=== PATIENT | male | born 1980 | race Caucasian/White ===

== ENCOUNTER 2021-02-12 07:31 | Outpatient (REF) | payer BC, SELFPAY ==
[2021-02-12 08:45] LABS: MANUAL DIFF FLAG NO
[2021-02-12 08:51] LABS: Basophils Percent Auto 0.5 % (0-2); Eosinophils Absolute Auto 0.1 X10*3/uL (0.0-0.4); Eosinophils Percent Auto 1.6 % (0-4); Imm Gran Abs Auto 0.03 X10*3/uL (0.00-0.03); Imm Gran Pct Auto 0.4 % (0.0-0.4); Lymphocytes Absolute Auto 2.5 X10*3/uL (1.2-4.9); Lymphocytes Percent Auto 32.7 % (20-40); Mean Corpuscular HGB Conc 34.1 g/dl (31.0-36.0); Mean Corpuscular Hemoglobin 32.4 pg (27.0-33.0); Mean Corpuscular Volume 94.9 fL (80-98); Mean Platelet Volume 10.2 fL (9.4-12.4); Monocytes Absolute Auto 0.5 X10*3/uL (0.1-1.2); Monocytes Percent Auto 6.5 % (2-11); Neutrophils Absolute Auto 4.5 X10*3/uL (2.0-8.3); Neutrophils Percent Auto 58.3 % (45-73); Platelet Count 233 X10*3/uL (160-400); Red Blood Count 4.32 X10*6/uL (4.60-5.80); Red Cell Distribution Width 12.7 % (11.0-16.0); White Blood Count 7.7 X10*3/uL (4.8-10.8)
[2021-02-12 09:13] LABS: Alanine Aminotransferase 18 U/L (0-40); Albumin Level 4.6 g/dL (3.5-5.0); Alkaline Phosphatase 38 U/L (39-117); Anion Gap 15 (12-20); Aspartate Amino Transferase 16 U/L (5-37); Bilirubin Total 0.5 mg/dL (0.0-1.0); Blood Urea Nitrogen 14 mg/dL (9-16); Calcium 9.2 mg/dL (8.4-10.2); Carbon Dioxide 23 mmol/L (22-29); Chloride 106 mmol/L (96-108); Cholesterol 186 mg/dL; Estimated Glomerular Filt Rate > 60; Glucose Fasting 82 mg/dL (60-99); HDL Cholesterol 39 mg/dL; LDL Cholesterol Calculated 108 mg/dl; Potassium 4.3 mmol/L (3.3-5.1); Sodium 140 mmol/L (135-145); Total Protein 7.1 g/dL (6.5-8.0); Triglycerides 196 mg/dL
== END 2021-02-12 07:32 | disposition home or self-care (01) ==
LOC: HO.LAB 07:31
PROVIDERS: PCP Internal Medicine; Visit Provider Nurse Practitioner Family
DX: A69.20 Lyme disease, unspecified (principal)
CPT/HCPCS: 36415; 80053; 80061; 85025

== ENCOUNTER → 2021-03-18 10:05 | Outpatient (BNVA) | payer BC, SELFPAY | PROVIDERS: PCP Internal Medicine; Visit Provider Internal Medicine ==

== ENCOUNTER 2021-03-19 16:08 | Emergency (ER) | payer BC, SELFPAY ==
[2021-03-19 17:10] VITALS: BP 139/85; PULSE 83; RESP 16; TEMP 36.2; O2SAT 100; BMI 29.9
--- NOTE | 2021-03-19 17:31 | ED.GENADULT ---
HPI - General Adult General Chief complaint: General Medical Stated complaint: ABN LABS Time Seen by Provider: 03/19/21 17:19 History of Present Illness HPI narrative: Patient complains of some insect bites, as well as a rash to upper thighs, and some other rash on the body, he is concerned as he found some insects in the car, no shortness of breath no swelling of tongue or lips or pharynx Related Data Previous Rx's Medication Instructions Recorded diphenhydramine HCl 25 mg tablet 25 mg PO BEDTIME PRN #30 tab 01/07/21 hydrocortisone 1 % topical cream 1 appl TOPICAL QID PRN #28.4 g 01/07/21 cholecalciferol (vitamin D3) 50 50 mcg PO DAILY 60 Days #60 cap 01/29/21 mcg (2,000 unit) capsule zinc 50 mg tablet 50 mg PO DAILY 30 Days #30 tab 01/29/21 permethrin 5 % topical cream 1 appl TOPICAL Q14D #60 g 03/07/21 cetirizine 10 mg PO DAILY PRN #14 cap 03/19/21 clotrimazole 1 appl TOPICAL BID PRN #45 g 03/19/21 dextroamphetamine-amphetamine 10 10 mg PO BID PRN 30 Days #60 tab 03/19/21 mg tablet hydrocortisone 1 appl TOPICAL BID PRN #30 g 03/19/21 Allergies Allergy/AdvReac Type Severity Reaction Status Date / Time bupropion [From Wellbutrin] Allergy Unknown inadequate Verified 03/14/21 11:33 response Review of Systems Review of Systems: Positive for skin rash and insect bites Negatives are no fever no chills no dizziness no weakness no swelling in the throat no difficulty breathing or swallowing no chest pain no shortness of breath no abdominal pain no vomiting no numbness weakness or tingling Yes all other systems are reviewed and are negative PMFSH Past Medical History Source: nursing notes reviewed Medical History ADD (attention deficit disorder) Anxiety and depression Erythema migrans (Lyme disease) Insect bite of thigh, right, infected Skin infection Surgical History History of vasectomy Family History Family History Father Diabetes Mother Cancer Smoker Family/Other FH: mental illness Social History Social History Alcohol intake: never Smoking Status: Former smoker Tobacco Type: Cigarette Advance Directives: No Advance Directives Information Provided: Yes Physical Exam Vital Signs: Vital Signs: Last Vital Signs Temp 97.1 F 03/19/21 17:10 Pulse 83 03/19/21 17:10 Resp 16 03/19/21 17:10 BP 139/85 03/19/21 17:10 Pulse Ox 100 03/19/21 17:10 Body Mass Index 29.9 General appearance is no acute distress The eyes are normal without redness or discharge The pharynx is clear without redness or swelling, there is no drooling, voice is normal The neck is supple The chest is clear to auscultation bilateral with equal symmetrical breath sounds The heart murmur Extremities full range of motion x4 Skin exam there are multiple small possible bug bites without surrounding cellulitis, no vesicular rash no petechiae or purpura Bilateral upper inner thighs head a raised border round red rash on both medial thighs consistent with a fungal infection Neuro no focal motor sensory deficit Course Course Course Narrative: Patient was recently prescribed permethrin for possible scabies I made sure he had an antihistamine for the itch from possible bug bites and the rash on his inner thighs which was raised and had the appearance of a fungal rash is treated with clotrimazole cream Discharge Plan Discharge Clinical Impression: Rash, Insect bite Patient Disposition: Home, Self-Care Additional Instructions: The rash on both her thighs could be a fungal infection so we are treating with clotrimazole cream as well as hydrocortisone cream The insect bites could be from any kind of insect and as they were itchy we are treating with Claritin, there is no sign of any skin infection or abscess Follow with primary doctor Return any concerns Prescriptions: New clotrimazole 1 % cream 1 appl topical BID PRN (Reason: Rash on thighs) Qty: 45 RF: 0 hydrocortisone 2.5 % cream 1 appl topical BID PRN (Reason: rash) Qty: 30 RF: 0 cetirizine 10 mg capsule 10 mg PO DAILY PRN (Reason: allergy symptoms) Qty: 14 RF: 0 No Action permethrin 5 % cream 1 appl topical Q14D Qty: 60 RF: 0 dextroamphetamine-amphetamine [Adderall] 10 mg tablet 10 mg PO BID PRN (Reason: attention) 30 Days Qty: 60 RF: 0 hydrocortisone 1 % cream 1 appl topical QID PRN (Reason: skin irritation) Qty: 28.4 RF: 0 diphenhydramine HCl [Allergy (diphenhydramine)] 25 mg tablet 25 mg PO BEDTIME PRN (Reason: sleep) Qty: 30 RF: 0 cholecalciferol (vitamin D3) 50 mcg (2,000 unit) capsule 50 mcg PO DAILY 60 Days Qty: 60 RF: 0 zinc 50 mg tablet 50 mg PO DAILY 30 Days Qty: 30 RF: 0 Interventions: ED Discharge Assessment Last Done: 03/19/21 17:39 Discharge Date/Time: 03/19/21 17:41
== END 2021-03-19 17:41 | disposition home or self-care (01) ==
PROVIDERS: Emergency Provider Internal Medicine; PCP Internal Medicine
DX: R21 Rash and other nonspecific skin eruption (principal); R79.89 Other specified abnormal findings of blood chemistry; Z79.899 Other long term (current) drug therapy; Z87.891 Personal history of nicotine dependence
CPT/HCPCS: 99283

== ENCOUNTER 2021-11-20 09:12 | Outpatient (REF) | payer BC, SELFPAY ==
[2021-11-20 14:31] LABS: Binax Internal Control QC Valid; Binax Now Covid-19 Ag Positive (Negative)
== END 2021-11-20 09:13 | disposition home or self-care (01) ==
LOC: HO.HMGCLDS 09:12
PROVIDERS: Visit Provider Internal Medicine
DX: Z20.822 Contact with and (suspected) exposure to COVID-19 (principal)
CPT/HCPCS: 36415; C9803

== ENCOUNTER 2022-07-17 12:30 | Emergency (ER) | payer BC, SELFPAY ==
--- NOTE | ~2022-07-17 | CT_ITS ---
EXAMINATION: CT HEAD WITHOUT CONTRAST CLINICAL INFORMATION: New onset of hallucinations. COMPARISON: None TECHNIQUE: Contiguous axial imaging was performed from the skull base to vertex without intravenous administration of contrast. Coronal and sagittal reformatted images are performed at the CT scanner. [This CT examination was performed using dose optimization techniques as appropriate, variously including the following: *Automated exposure control *Adjustment of mA and/or kV according to patient size (this includes techniques or standardized protocols for targeted exams where dose is matched to indication/reason for exam; i.e. extremities or head) *Use of iterative reconstruction technique] DLP: 698 mGy-cm. FINDINGS: There is no evidence of acute intracranial hemorrhage or territorial infarction. No abnormal mass-effect or midline shift is seen. Beckman to white matter differentiation is well preserved. No extra-axial fluid collections are identified. The ventricles are normal in size. There is no abnormal attenuation within the brain parenchyma. There is no osseous abnormality. The mastoid air cells and visualized portions of the paranasal sinuses are well-aerated. CT/CT head/brain wo IV con IMPRESSION: No acute intracranial pathology.
[2022-07-17 12:45] VITALS: BP 126/69; PULSE 76; RESP 18; TEMP 36.2; O2SAT 98; BMI 29.0
--- NOTE | 2022-07-17 13:06 | ECG_ITS ---
Test Reason : med clearance Blood Pressure : / mmHG Vent. Rate : 057 BPM Atrial Rate : 057 BPM P-R Int : 154 ms QRS Dur : 086 ms QT Int : 418 ms P-R-T Axes : 077 074 042 degrees QTc Int : 406 ms Sinus bradycardia with sinus arrhythmia Otherwise normal ECG No previous ECGs available Referred By: Naz Lauren Electronically Signed By:OREN BEAR
--- NOTE | 2022-07-17 13:10 | ED_ITS ---
HPI - Psych General Chief Complaint: Psychiatric Symptoms Stated Complaint: Psych symptoms Time Seen by Provider: 07/17/22 13:06 Source: patient Mode of arrival: ambulatory Limitations: no limitations History of Present Illness MD complaint: anxiety, hallucinations and other (paranoid) Onset (ago): week(s) (2) Duration: getting worse History of same: No Relieving factors: none Exacerbating factors: other ( life stress ) Context: significant life stressor Associated psychiatric symptoms: racing thoughts, auditory hallucinations and visual hallucinations Associated symptoms: denies other symptoms Treatments prior to arrival: none Related Data Previous Rx's Medication Instructions Recorded clobetasol 0.05 % topical cream 1 appl topical BID 2 weeks #45 12/01/21 grams albuterol sulfate 90 mcg/actuation 1 inh inhalation QID 30 days #6.7 06/01/22 aerosol inhaler grams dextroamphetamine-amphetamine 10 10 mg PO BID PRN attention 30 days 06/22/22 mg tablet (Adderall) #60 tabs Allergies Allergy/AdvReac Type Severity Reaction Status Date / Time bupropion [From Wellbutrin] Allergy Intermediate inadequate Verified 07/17/22 12:45 response Review of Systems Review of Systems: Constitutional : No Fever, No Chills ENT/Mouth : No Ear Pain, No Nasal Congestion, No sore throat Eyes: No Eye Pain, No Swelling, No Redness Cardiovascular : No Chest Pain, No SOB Respiratory : No Cough, No Sputum, No Dyspnea Gastrointestinal : No Nausea, No Vomiting, No Diarrhea, No Hematochezia, No Melena Genitourinary : No Dysuria, No Urinary Frequency, No Hematuria Musculoskeletal : No Myalgias Skin : No Skin Lesions, No rash Neuro : No Weakness, No Numbness, No Paresthesias, No Dizziness, No Headache Psych : positive Anxiety, positive Depression, no SI/HI, pos AH, VH Heme/Lymph: No Lymphadenopathy Endocrine : No Polyuria, No Polydipsia All other systems reviewed and are negative PMFSH Past Medical History Attestation statement: The following information was validated with the patient. Medical History ADD (attention deficit disorder) Anxiety and depression Erythema migrans (Lyme disease) Hypovitaminosis D Insect bite of thigh, right, infected Shortness of breath Skin infection Unprotected sex Surgical History History of vasectomy Family History Family History Father Diabetes Mother Cancer Smoker Family/Other FH: mental illness Social History Social History Housing: Apartment Alcohol intake: never Patient Tobacco Use Status: Current someday Tobacco user Tobacco use type: Cigarette e-Cigarette/Vaping Use: Currently Using Second Hand Smoke Exposure: No Advance Directives: No Advance Directives Information Provided: Yes service: No Current occupational status: employed Current occupational exposures/hazards: No Physical Exam Vital Signs: Vital Signs: Last Vital Signs Temp 97.2 F 07/17/22 12:45 Pulse 76 07/17/22 12:45 Resp 18 07/17/22 12:45 BP 126/69 07/17/22 12:45 Pulse Ox 98 07/17/22 12:45 O2 Del Method 07/17/22 12:45 BMI result Body Mass Index 29.0 Appearance: Alert. Oriented X3. No acute distress. anxious laughing to himself at times Eyes: Pupils equal, round and reactive to light. ENT: Pharynx normal. Neck: Normal inspection. Neck supple. CVS: Normal heart rate and rhythm. Pulses normal. Respiratory: No respiratory distress. Breath sounds normal. Abdomen: Soft and nontender. Skin: Skin warm and dry. Normal skin color. Normal skin turgor. Extremities: No lower extremity edema. No calf ttp Neuro: Oriented X 3. No motor deficit. No sensory deficit. CN2-12 intact Course Course Course Narrative: Physician observation started at 305pm. Patient placed in physician observation because the patient needed more time for CARE team to assess the need for psych admission. At the time observation was started the patient's vitals were stable, patient is alert and oriented but slightly anxious, Neuro: nonfocal, CV RRR, Lungs clear MDM - Psych MDM Narrative Medical decision making narrative: 42 yo male with hx of anxiety and depression presents with c/o AH/VH no sleep since life stressors at this time given new onset hallucinations will need labs, CT head for mass once medically cleared will refer to CARE team/[facility]. Dispo per results and findings. Lab Data Result diagrams: 07/17/22 14:19 07/17/22 14:19 Labs: Lab Results 09/01/0607/17/22 07/17/22 Range/Units 14:19 14:19 14:19 WBC 6.9 (4.8-10.8) X10*3/uL RBC 4.10 L (4.60-5.80) X10*6/uL Hgb 13.3 L (14.0-18.0) g/dl Hct 37.7 L (42.0-52.0) % MCV 92.0 (80.0-98.0) fL MCH 32.4 (27.0-33.0) pg MCHC 35.3 (31.0-36.0) g/dl RDW 12.8 (11.0-16.0) % Plt Count 247 (160-400) X10*3/uL MPV 9.7 (9.4-12.4) fL Immature Gran % (Auto) 0.3 (0.0-0.4) % Neut % (Auto) 58.4 (45-73) % Lymph % (Auto) 35.7 (20-40) % [place] % (Auto) 4.6 (2-11) % Eos % (Auto) 0.4 (0-4) % Baso % (Auto) 0.6 (0-2) % Lymph # (Auto) 2.5 (1.2-4.9) X10*3/uL [place] # (Auto) 0.3 (0.1-1.2) X10*3/uL Eos # (Auto) 0.0 (0.0-0.4) X10*3/uL Baso # (Auto) 0.0 (0.0-0.2) X10*3/uL Abs Immat Gran (auto) 0.02 (0.00-0.03) X10*3/uL Absolute Neuts (auto) 4.0 (2.0-8.3) x10*3/uL Absolute Nucleated RBC 0.000 (0.0-0.012) X10*3/uL Nucleated RBC % (auto) 0.0 (0.0-0.2) /100WBC Sodium 144 (135-145) mmol/L Potassium 4.0 (3.3-5.1) mmol/L Chloride 104 (96-108) mmol/L Carbon Dioxide 26 (22-29) mmol/L Anion Gap 18 (12-20) BUN 12 (9-16) mg/dL Creatinine 0.95 (0.5-1.4) mg/dL Estim Creat Clear Calc 101.6 Estimated GFR > 60 Random Glucose 122 H (60-115) mg/dL Calcium 9.7 (8.4-10.2) mg/dL Magnesium 2.2 (1.6-2.6) mg/dL Total Bilirubin 0.5 (0.0-1.0) mg/dL Direct Bilirubin 0.2 (0.0-0.5) mg/dL AST 16 (5-37) U/L ALT 14 (0-40) U/L Alkaline Phosphatase 37 L (39-117) U/L Total Protein 7.1 (6.5-8.0) g/dL Albumin 4.5 (3.5-5.0) g/dL TSH (0.32-4.0) uIU/mL Ethyl Alcohol mg/dL COVID-19 ([facility]) Negative (Negative) COVID-19 Clin Com See Note 07/17/22 07/17/22 Range/Units 14:19 14:19 WBC (4.8-10.8) X10*3/uL RBC (4.60-5.80) X10*6/uL Hgb (14.0-18.0) g/dl Hct (42.0-52.0) % MCV (80.0-98.0) fL MCH (27.0-33.0) pg MCHC (31.0-36.0) g/dl RDW (11.0-16.0) % Plt Count (160-400) X10*3/uL MPV (9.4-12.4) fL Immature Gran % (Auto) (0.0-0.4) % Neut % (Auto) (45-73) % Lymph % (Auto) (20-40) % [place] % (Auto) (2-11) % Eos % (Auto) (0-4) % Baso % (Auto) (0-2) % Lymph # (Auto) (1.2-4.9) X10*3/uL [place] # (Auto) (0.1-1.2) X10*3/uL Eos # (Auto) (0.0-0.4) X10*3/uL Baso # (Auto) (0.0-0.2) X10*3/uL Abs Immat Gran (auto) (0.00-0.03) X10*3/uL Absolute Neuts (auto) (2.0-8.3) x10*3/uL Absolute Nucleated RBC (0.0-0.012) X10*3/uL Nucleated RBC % (auto) (0.0-0.2) /100WBC Sodium (135-145) mmol/L Potassium (3.3-5.1) mmol/L Chloride (96-108) mmol/L Carbon Dioxide (22-29) mmol/L Anion Gap (12-20) BUN (9-16) mg/dL Creatinine (0.5-1.4) mg/dL Estim Creat Clear Calc Estimated GFR Random Glucose (60-115) mg/dL Calcium (8.4-10.2) mg/dL Magnesium (1.6-2.6) mg/dL Total Bilirubin (0.0-1.0) mg/dL Direct Bilirubin (0.0-0.5) mg/dL AST (5-37) U/L ALT (0-40) U/L Alkaline Phosphatase (39-117) U/L Total Protein (6.5-8.0) g/dL Albumin (3.5-5.0) g/dL TSH 1.29 (0.32-4.0) uIU/mL Ethyl Alcohol < 10 mg/dL COVID-19 ([facility]) (Negative) COVID-19 Clin Com Discharge Plan Discharge Clinical Impression: Hallucinations Patient Disposition: Still a Patient Prescriptions: No Action clobetasol 0.05 % cream 1 appl topical BID 14 Days Qty: 45 2RF albuterol sulfate 90 mcg/actuation HFA aerosol inhaler 1 inh inhalation QID 30 Days Qty: 6.7 1RF dextroamphetamine-amphetamine [Adderall] 10 mg tablet 10 mg PO BID PRN (Reason: attention) 30 Days Qty: 60 0RF Rx Instructions: administer doses at least 4-6 hours apart
--- NOTE | 2022-07-17 13:20 | MHC.CARE ---
CARE Team received a call from Pts therapist Ann Hurtado [phone] MANAGER [employer]OGY. She reported he has been experiencing shima and paranoia. She reports Pt is questioning if he is or live. Pt is stating is he seeing a auras of people and they are evil. She concerned regarding his impairment that he may hurt himself or someone else. She is advocatinfg for a crisis assessment / IPLOC admission. CARE Team informed bellows charger assembler and attending physician Dr. Lauren. CARE Team placed Pt on a Section 12 and will be evaluated upon medical clearance.
[2022-07-17 14:25] LABS: MANUAL DIFF FLAG NO
[2022-07-17 14:27] LABS: Basophils Percent Auto 0.6 % (0-2); Eosinophils Percent Auto 0.4 % (0-4); Hematocrit 37.7 % (42.0-52.0); Hemoglobin 13.3 g/dl (14.0-18.0); Imm Gran Abs Auto 0.02 X10*3/uL (0.00-0.03); Imm Gran Pct Auto 0.3 % (0.0-0.4); Lymphocytes Absolute Auto 2.5 X10*3/uL (1.2-4.9); Lymphocytes Percent Auto 35.7 % (20-40); Mean Corpuscular HGB Conc 35.3 g/dl (31.0-36.0); Mean Corpuscular Hemoglobin 32.4 pg (27.0-33.0); Mean Platelet Volume 9.7 fL (9.4-12.4); Monocytes Absolute Auto 0.3 X10*3/uL (0.1-1.2); Monocytes Percent Auto 4.6 % (2-11); Neutrophils Percent Auto 58.4 % (45-73); Platelet Count 247 X10*3/uL (160-400); Red Cell Distribution Width 12.8 % (11.0-16.0); White Blood Count 6.9 X10*3/uL (4.8-10.8)
[2022-07-17 14:39] LABS: Ethanol < 10 mg/dL
[2022-07-17 14:43] LABS: Alanine Aminotransferase 14 U/L (0-40); Albumin Level 4.5 g/dL (3.5-5.0); Alkaline Phosphatase 37 U/L (39-117); Anion Gap 18 (12-20); Aspartate Amino Transferase 16 U/L (5-37); Bilirubin Direct 0.2 mg/dL (0.0-0.5); Bilirubin Total 0.5 mg/dL (0.0-1.0); Blood Urea Nitrogen 12 mg/dL (9-16); Calcium 9.7 mg/dL (8.4-10.2); Carbon Dioxide 26 mmol/L (22-29); Chloride 104 mmol/L (96-108); Creatinine Clr Calc Pharmacy 101.6; Estimated Glomerular Filt Rate > 60; Glucose Random 122 mg/dL (60-115); Magnesium 2.2 mg/dL (1.6-2.6); Sodium 144 mmol/L (135-145); Total Protein 7.1 g/dL (6.5-8.0)
[2022-07-17 14:45] LABS: COVID-19 Test Negative (Negative)
--- NOTE | 2022-07-17 14:53 | PC.NURSE ---
supplemental triage note: client states only current med adderall, received covid vaccine, states he previously was seen at [facility] with this presentation in march. deines all drugs except THC. patient feels safe. was asked about sublocade and patient does not recall about this medicine , no NRT desired.
[2022-07-17 15:03] LABS: TSH reflex Free T4 1.29 uIU/mL (0.32-4.0)
[2022-07-17 16:34] LABS: Amphetamine Screen Urine POSITIVE (Not Detect); Barbiturates, Urine Not Detected (Not Detect); Benzodiazepines Screen Urine Not Detected (Not Detect); Cannabinoid Screen Urine POSITIVE (Not Detect); Cocaine Screen Urine Not Detected (Not Detect); Fentanyl, urine Not Detected (Not Detect); Opiate Screen Urine Not Detected (Not Detect); Phencyclidine Screen Urine Not Detected (Not Detect)
--- NOTE | 2022-07-17 17:35 | MHC.CARE ---
Pt was evaluated by the CARE Team and made an inpatient bedsearch at this time.
[2022-07-17 20:09] VITALS: BP 97/57; PULSE 60; RESP 16; TEMP 36.4; O2SAT 98
[2022-07-18 01:48] VITALS: BP 117/82; PULSE 65; RESP 16; TEMP 36.8; O2SAT 98
--- NOTE | 2022-07-18 07:01 | PC.NURSE ---
Patient slept though the night, no distress observed/reported, behavior non concerning, med rec completed/pending provider's approval, disposition per care team is section 12 inpatient bed search, VSS, will continue to monitor.
[2022-07-18 11:43] VITALS: BP 104/70; PULSE 58; RESP 16; TEMP 36.9; O2SAT 99
--- NOTE | 2022-07-18 13:43 | PC.NURSE ---
Patient refused starting Zyprexa from yoanna RN. Patient states he does not want to start a medication before talking to his Primary care and psychiatrist.
--- NOTE | 2022-07-18 15:13 | MHC.CARE ---
CARE Team meets with pt at his request for an audience.? Pt is sitting in bed at the time, with a broad smile on his face.? He asks why he remains in the ED and what the plan is.? He appears intense, though the question is posed in a polite fashion, his affect does not appear congruent with his mood.? Pt is insistent that he is well enough to leave and is not accepting of the decision to be made a bed search nor does he think he is in need of inpatient level of CARE. Pt argues his point politely and in a non-threatening manner though there is a degree of intensity to his behavior and his affect even though the broad smile remains throughout the conversation.? At one point, pt stopped speaking and stared at CARE Team as though he was observing something on or around this check writer?s person. Pt then dismissed CARE Team, stating that his meal trays could be left outside his ?cell door, like a dog?.? Pt also stated that should there be a need for further interactions, to knock before entering, and enter only when given permission to do so.? NOTE:? CARE Team did knock before entering and entered only when acknowledged. Pt?s nurse, earlier today refused Zyprexa.? Pt?s new nurse notified CARE Team that pt approached the nurse?s station, declared his pants did not fit appropriately and then dropped his pants.
[2022-07-18 19:52] VITALS: BP 124/78; PULSE 82; RESP 16; TEMP 36.3; O2SAT 99
--- NOTE | 2022-07-19 06:35 | PC.NURSE ---
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
[2022-07-19] MEDS: Hydrocortisone 1 % Cream 28.35 GM TUBE 1 APPL TOPICAL (12:07)
[2022-07-19 15:44] VITALS: BP 128/66; PULSE 61; RESP 17; TEMP 36.6; O2SAT 100
--- NOTE | 2022-07-19 17:01 | PC.NURSE ---
pt is stating that he wants to leave and he is no longer delusional, he stated that he smoked pot all day and thats why he ended up here, no longer wants to stay here. He also stated there are worse people here than him and he feels traumatized being here . I spoke to Dori the components engineer clinician regarding all this and pt was already assessed today and definitely cannot leave as he is unwell . Will reevaluate tomorrow when team comes in. pt not happy with this explanation but is accepting. he is still refusing any meds at this time.
[2022-07-20 01:14] VITALS: BP 133/85; PULSE 67; RESP 16; TEMP 36.7; O2SAT 99
--- NOTE | 2022-07-20 07:54 | PC.NURSE ---
patient appears to remain at rest at present respirations are even and unlabored patient appears in no distress
[2022-07-20] MEDS: Hydrocortisone 1 % Cream 28.35 GM TUBE 1 APPL TOPICAL (10:11)
[2022-07-20 10:55] VITALS: BP 131/90; PULSE 68; RESP 16; TEMP 36.8; O2SAT 99
--- NOTE | 2022-07-21 15:26 | MHC.CARE ---
Follow up call to patient, he said he is doing very well has rested, taking care of some details related to his new job and made an appointment with his PCP. Patient knows where to reach out for help if needed.
== END 2022-07-20 16:01 | disposition home or self-care (01) ==
PROVIDERS: Emergency Provider Emergency Medicine; PCP Internal Medicine
DX: R44.0 Auditory hallucinations (principal); R44.1 Visual hallucinations; F43.9 Reaction to severe stress, unspecified; Z20.822 Contact with and (suspected) exposure to COVID-19; F17.210 Nicotine dependence, cigarettes, uncomplicated; Z71.6 Tobacco abuse counseling; Z79.899 Other long term (current) drug therapy
CPT/HCPCS: 36415; 70450; 80048; 80076; 80307; 82077; 83735; 84443; 85025; 87635; 93005; 99285

== ENCOUNTER 2023-06-29 09:01 | Outpatient (REF) | payer OTHER, SELFPAY ==
[2023-06-29 12:10] LABS: Syphilis Screen Nonreactive (Nonreactive)
[2023-06-29 12:23] LABS: HIV AB/AG Nonreactive (Nonreactive); HIV Num 1 0.08 S/CO (0.00-0.99)
[2023-06-30 14:58] LABS: CT PCR NOT DETECTED (Not Detect.); NG PCR NOT DETECTED (Not Detect.)
== END 2023-06-29 09:02 | disposition home or self-care (01) ==
LOC: HO.HMGCLDS 09:01
PROVIDERS: PCP Internal Medicine; Visit Provider Internal Medicine
DX: Z11.4 Encounter for screening for human immunodeficiency virus [HIV] (principal); Z20.2 Contact with and (suspected) exposure to infections with a predominantly sexual mode of transmission
CPT/HCPCS: 0353U; 86780; 87389

== ENCOUNTER 2023-08-06 18:09 | Inpatient (IN) | payer OTHER, SELFPAY ==
[2023-08-06 18:17] VITALS: BP 149/103; PULSE 80; RESP 18; TEMP 36.7; O2SAT 99
--- NOTE | 2023-08-06 18:17 | ED.GENADULT ---
HPI - General Adult General Chief complaint: Psychiatric Symptoms Stated complaint: Psychiatric Issues Time Seen by Provider: 08/06/23 20:27 Source: patient Mode of arrival: ambulatory Limitations: no limitations History of Present Illness HPI narrative: patient comes to the emergency room complaining of depression and paranoia. Patient states that he has not been able to sleep. Patient denies suicidal or homicidal ideation. patient is not taking any medication. Related Data Home Medications Medication Instructions Recorded Confirmed No Known Home Meds 08/06/23 08/06/23 Allergies Allergy/AdvReac Type Severity Reaction Status Date / Time bupropion [From Wellbutrin] Allergy Intermediate inadequate Verified 07/17/22 12:45 response Review of Systems Review of Systems: Constitutional : No Weight loss, No Fever, No Chills, No Night Sweats, No Fatigue, No Malaise ENT/Mouth : No Hearing loss, No Ear Pain, No Nasal Congestion, No Sinus Pain, No Hoarseness, No sore throat, No Rhinorrhea, No Swallowing Difficulty Eyes: No Eye Pain, No Swelling, No Redness, No Foreign Body, No Discharge, No Vision Changes Cardiovascular : No Chest Pain, No SOB, No Dyspnea on Exertion, No Orthopnea, No Edema, No Palpitations Respiratory : No Cough, No Sputum, No Wheezing, No Smoke Exposure, No Dyspnea Gastrointestinal : No Nausea, No Vomiting, No Diarrhea, No Constipation, No abdominal Pain, No Hematochezia, No Melena Genitourinary : no irregular bleeding, No Dysuria, No Urinary Frequency, No Hematuria, No Urinary Incontinence, No Urgency, No Flank Pain, No Urinary Flow Changes, No Hesitancy Musculoskeletal : No joint pain, No Myalgias, No Joint Swelling Skin : No Skin Lesions, No rash Neuro : No Weakness, No Numbness, No Paresthesias, No Loss of Consciousness, No Dizziness, No Headache Psych : Complaining of feeling paranoid, depressed, not suicidal or homicidal. insomnia Heme/Lymph: No Bruising, No Bleeding,No Lymphadenopathy Endocrine : No Polyuria, No Polydipsia, No Temperature Intolerance PMFSH Past Medical History Medical History Hypovitaminosis D Unprotected sex Shortness of breath Anxiety and depression Erythema migrans (Lyme disease) Insect bite of thigh, right, infected Skin infection ADD (attention deficit disorder) Surgical History History of vasectomy Family History Family History Father Diabetes Mother Cancer Smoker Family/Other FH: mental illness Social History Social History Housing: Apartment Alcohol intake: never Patient Tobacco Use Status: Never used Tobacco Tobacco use type: Cigarette e-Cigarette/Vaping Use: Currently Using Second Hand Smoke Exposure: No Substance Use Type: Marijuana Advance Directives: No Advance Directives Information Provided: No Healthcare Proxy: No Guardian: No service: No Current occupational status: employed Current occupational exposures/hazards: No Physical Exam ED Vital Signs: Vital Signs - 24 hr 08/07/23 19:10 08/08/23 03:12 Temperature 97.5 F 97.6 F Pulse Rate 71 75 Respiratory Rate 17 17 Blood Pressure 128/93 H 123/81 Pulse Oximetry 100 99 Oxygen Delivery Method Room Air Room Air BMI result Body Mass Index 30.0 Const Other: Appearance: Alert. Oriented X3. No acute distress. Eyes: Pupils equal, round and reactive to light. ENT: Pharynx normal. Neck: Normal inspection. Neck supple. No lymph nodes noted. No crepitus CVS: Normal heart rate and rhythm. Pulses normal. Normal S1 and S2 Respiratory: No respiratory distress. Breath sounds normal. No Wheezing. No rales Abdomen: Soft and nontender. No rigidity. No distention. Skin: Skin warm and dry. Normal skin color. Normal skin turgor. Extremities: No lower extremity edema. No Lacerations. No Rash Neuro: Oriented X 3. No motor deficit. No sensory deficit. Moving all extremities. No slurred speech. CN 2 through 12 grossly intact Psych: calm, cooperative, normal affect, coherent Course Course Course Narrative: This is an RME: Additional HPI, ROS, PE not included below will be deferred to primary provider. 43 y o male PMH anxiety and depression presenting for evaluation of sleep deprivation and increased feelings of depression over the past 7-10 days. Denies AH/VH, SI/HI. Plan labs, crisis Reevaluation(s) Reevaluation #1: Physician observation continued: The patient has been in the emergency department for 12 hours Patient presented with depression, patient is waiting to be seen by care team. The patient will be kept on physician observation in the emergency department Behavioral Health Unit until disposition can be determined or until his symptoms improve over time. Time: 06:56 Reevaluation #2: Patient was evaluated by the care team and the patient has been accepted here at our facility. Time: 09:46 Reevaluation #3: I assumed care at approximately 7:00 a.m. this morning. Patient is here for depression symptomatology he. He is currently an inpatient voluntary bed search. Time: 07:31 Medications Administered Generic Name Dose Route Start Last Admin Trade Name Freq PRN Reason Stop Dose Admin Nicotine 21 mg 08/07/23 09:30 08/07/23 09:32 Nicotine 21 Mg Patch.Td24 TRANSDERMA 21 mg DAILY ROBERTO CARLOS Administration Discontinued Medications Generic Name Dose Route Start Last Admin Trade Name Freq PRN Reason Stop Dose Admin Ibuprofen 800 mg 08/07/23 02:54 08/07/23 02:59 Ibuprofen 800 Mg Tablet PO 08/07/23 02:55 800 mg ONCE ONE Administration Lorazepam 1 mg 08/07/23 10:54 08/07/23 11:03 Lorazepam 1 Mg Tablet PO 08/07/23 10:55 Not Given ONCE ONE Lorazepam 1 mg 08/07/23 11:01 08/07/23 11:04 Lorazepam 1 Mg Tablet PO 08/07/23 11:02 1 mg ONCE ONE Administration Lorazepam 1 mg 08/07/23 19:09 08/07/23 19:18 Lorazepam 1 Mg Tablet PO 08/07/23 19:10 1 mg ONCE ONE Administration Medical Decision Making Medical Decision Making [facility] Narrative: - my interpretation of labs: White blood cell count 11.3, no signs of infection, chemistry normal, urinalysis negative for UTI, urine tox positive for THC Differential Diagnosis Differential Diagnoses: The differential diagnosis associated with the presentation includes ( anxiety, depression, insomnia, substance abuse) Admission/Observation Consideration of admission/observation: Escalation of care including admission/observation considered ( patient will be under observation until evaluated by the care team) Lab Data 08/06/23 21:14 08/06/23 21:14 Labs: Lab Results 08/06/23 08/06/23 08/07/23 Range/Units 20:59 21:14 09:54 WBC 11.3 H (4.8-10.8) X10*3/uL RBC 5.05 D (4.60-5.80) X10*6/uL Hgb 16.3 D (14.0-18.0) g/dl Hct 46.9 D (42.0-52.0) % MCV 92.9 (80.0-98.0) fL MCH 32.3 (27.0-33.0) pg MCHC 34.8 (31.0-36.0) g/dl RDW 13.0 (11.0-16.0) % Plt Count 265 (160-400) X10*3/uL MPV 9.8 (9.4-12.4) fL Immature Gran % (Auto) 0.4 (0.0-0.4) % Neut % (Auto) 52.7 (45-73) % Lymph % (Auto) 36.2 (20-40) % [place] % (Auto) 8.3 (2-11) % Eos % (Auto) 1.6 (0-4) % Baso % (Auto) 0.8 (0-2) % Lymph # (Auto) 4.1 (1.2-4.9) X10*3/uL [place] # (Auto) 0.9 (0.1-1.2) X10*3/uL Eos # (Auto) 0.2 (0.0-0.4) X10*3/uL Baso # (Auto) 0.1 (0.0-0.2) X10*3/uL Abs Immat Gran (auto) 0.04 H (0.00-0.03) X10*3/uL Absolute Neuts (auto) 5.9 (2.0-8.3) x10*3/uL Absolute Nucleated RBC 0.000 (0.0-0.012) X10*3/uL Nucleated RBC % (auto) 0.0 (0.0-0.2) /100WBC Sodium 138 (135-145) mmol/L Potassium 4.3 (3.3-5.1) mmol/L Chloride 101 (96-108) mmol/L Carbon Dioxide 22 (22-29) mmol/L Anion Gap 19 (12-20) BUN 17 H (9-16) mg/dL Creatinine 0.92 (0.5-1.4) mg/dL Estim Creat Clear Calc 101.8 Estimated GFR > 60 Random Glucose 85 (60-115) mg/dL Calcium 10.6 H D (8.4-10.2) mg/dL Total Bilirubin 1.2 H (0.0-1.0) mg/dL AST 27 (5-37) U/L ALT 17 (0-40) U/L Alkaline Phosphatase 56 (39-117) U/L Total Protein 8.5 H (6.5-8.0) g/dL Albumin 5.2 H (3.5-5.0) g/dL Urine Color Yellow Urine Appearance Clear Urine pH 5.5 (5.0-9.0) Ur Specific [place] <= 1.005 (1.005-1.025) Urine Protein Negative (Neg-Trace) mg/dL Urine Glucose (UA) Negative (Negative) mg/dL Urine Ketones Trace (Negative) mg/dL Urine Blood Negative (Negative) Urine Nitrite Negative (Negative) Ur Leukocyte Esterase Negative (Negative) Salicylates < 5.0 L (15-30) mg/dL Urine Opiates Screen Not Detected (Not Detect) Urine Fentanyl Screen Not Detected (Not Detect) Acetaminophen < 17 (<30) mcg/mL Ur Barbiturates Screen Not Detected (Not Detect) Ur Phencyclidine Scrn Not Detected (Not Detect) Ur Amphetamines Screen Not Detected (Not Detect) U Benzodiazepines Scrn Not Detected (Not Detect) Urine Cocaine Screen Not Detected (Not Detect) U Marijuana (THC) Screen POSITIVE H (Not Detect) Ethyl Alcohol < 10 mg/dL COVID-19 (MARCUS) Negative (Negative) COVID-19 Clin Com See Note Critical Care Time Critical Care Time Critical Care Time: Yes Total Critical Care Time: 30 Attestation: I have personally provided critical care time. Time includes review of lab data, radiology results, discussion with consultants, and monitoring for potential decompensation. Intervention performed as documented. Discharge Plan Discharge Clinical Impression: Depression Patient Disposition: Admitted As Inpatient Interventions: Trigg-Suicide Risk Severity Scale Last Done: 08/08/23 05:29
--- NOTE | 2023-08-06 18:31 | MHC.EDTECH ---
this pct attempted to draw labs and patiedt freaked out saying the butterfly needle hurt way too much and to take it out, patient was sent back to waiting room.RN Aware
[2023-08-06 21:11] LABS: Appearance Urine Clear; Color Urine Yellow; Glucose Urine UA Negative (Negative); Leukocyte Esterase Urine Negative (Negative); Nitrite Urine Negative (Negative); PH 5.5 (5.0-9.0); Specific Gravity - Urine <= 1.005 (1.005-1.025); Urine Blood Negative (Negative); Urine Ketones Trace mg/dL (Negative); Urine Protein Negative (Neg-Trace)
[2023-08-06 21:19] LABS: Amphetamine Screen Urine Not Detected (Not Detect); Barbiturates, Urine Not Detected (Not Detect); Benzodiazepines Screen Urine Not Detected (Not Detect); Cannabinoid Screen Urine POSITIVE (Not Detect); Cocaine Screen Urine Not Detected (Not Detect); Fentanyl, urine Not Detected (Not Detect); Opiate Screen Urine Not Detected (Not Detect); Phencyclidine Screen Urine Not Detected (Not Detect)
[2023-08-06 21:20] LABS: MANUAL DIFF FLAG NO
[2023-08-06 21:23] LABS: Basophils Absolute Auto 0.1 X10*3/uL (0.0-0.2); Basophils Percent Auto 0.8 % (0-2); Eosinophils Absolute Auto 0.2 X10*3/uL (0.0-0.4); Eosinophils Percent Auto 1.6 % (0-4); Hematocrit 46.9 % (42.0-52.0); Hemoglobin 16.3 g/dl (14.0-18.0); Imm Gran Abs Auto 0.04 X10*3/uL (0.00-0.03); Imm Gran Pct Auto 0.4 % (0.0-0.4); Lymphocytes Absolute Auto 4.1 X10*3/uL (1.2-4.9); Lymphocytes Percent Auto 36.2 % (20-40); Mean Corpuscular HGB Conc 34.8 g/dl (31.0-36.0); Mean Corpuscular Hemoglobin 32.3 pg (27.0-33.0); Mean Corpuscular Volume 92.9 fL (80.0-98.0); Mean Platelet Volume 9.8 fL (9.4-12.4); Monocytes Absolute Auto 0.9 X10*3/uL (0.1-1.2); Monocytes Percent Auto 8.3 % (2-11); Neutrophils Absolute Auto 5.9 x10*3/uL (2.0-8.3); Neutrophils Percent Auto 52.7 % (45-73); Platelet Count 265 X10*3/uL (160-400); Red Blood Count 5.05 X10*6/uL (4.60-5.80); White Blood Count 11.3 X10*3/uL (4.8-10.8)
[2023-08-06 21:37] LABS: Alanine Aminotransferase 17 U/L (0-40); Albumin Level 5.2 g/dL (3.5-5.0); Alkaline Phosphatase 56 U/L (39-117); Anion Gap 19 (12-20); Aspartate Amino Transferase 27 U/L (5-37); Bilirubin Total 1.2 mg/dL (0.0-1.0); Blood Urea Nitrogen 17 mg/dL (9-16); Calcium 10.6 mg/dL (8.4-10.2); Carbon Dioxide 22 mmol/L (22-29); Chloride 101 mmol/L (96-108); Creatinine Clr Calc Pharmacy 101.8; Estimated Glomerular Filt Rate > 60; Ethanol < 10 mg/dL; Glucose Random 85 mg/dL (60-115); Potassium 4.3 mmol/L (3.3-5.1); Sodium 138 mmol/L (135-145); Total Protein 8.5 g/dL (6.5-8.0)
[2023-08-06 21:51] LABS: Acetaminophen LAB < 17 mcg/mL (<30); Salicylate < 5.0 mg/dL (15-30)
[2023-08-07] MEDS: Ibuprofen 800 MG TABLET PO (02:59)
--- NOTE | 2023-08-07 03:02 | PC.NURSE ---
Ibuprofen 800 mg administered/as ordered/as requested with pending effect, VSS, will continue to monitor.
[2023-08-07 03:07] VITALS: BP 138/86; PULSE 77; RESP 15; TEMP 36.2; O2SAT 99
--- NOTE | 2023-08-07 07:08 | PC.NURSE ---
patient appears to remain asleep at present respirations are even and unlabored patient appears in no distress
[2023-08-07] MEDS: Nicotine 21 MG PATCH.TD24 TRANSDERMA (09:32)
[2023-08-07 10:33] LABS: COVID-19 Test Negative (Negative); IDNOW Serial# 9DB6401D
[2023-08-07] MEDS: LORazepam 1 MG TABLET PO ×2 (11:04→19:18)
[2023-08-07 19:10] VITALS: BP 128/93; PULSE 71; RESP 17; TEMP 36.4; O2SAT 100
[2023-08-08 03:12] VITALS: BP 123/81; PULSE 75; RESP 17; TEMP 36.4; O2SAT 99
--- NOTE | 2023-08-08 05:32 | PC.NURSE ---
Patient slept through the night, no distress observed/reported, behavior non concerning, med rec completed/currently not on any medication, Ativan 1 mg administered at 1918 with + effect, disposition per care team is voluntary inpatient bed search, VSS, labs completed/resulted, will continue to monitor.
--- NOTE | 2023-08-08 07:02 | PC.NURSE ---
Resumed care of patient, he is currently sleeping. Safety measures in place, safety checks in place, reported pt slept all night post Ativan. Awaiting placement at this time
[2023-08-08] MEDS: Nicotine 21 MG PATCH.TD24 TRANSDERMA (08:22)
[2023-08-08] MEDS: LORazepam 1 MG TABLET PO ×3 (08:38→22:33)
--- NOTE | 2023-08-08 09:03 | PHA.MEDREC ---
Pharmacy Consult ? Medication Reconciliation Pharmacy has completed the medication reconciliation. No home meds per nursing
--- NOTE | 2023-08-08 11:52 | PC.NURSE ---
Nurse to nurse report given to Paola GAONA
[2023-08-08 14:06] VITALS: BMI 25.1
[2023-08-08 16:00] VITALS: BP 115/81; PULSE 78; RESP 18; TEMP 36.3; O2SAT 97
--- NOTE | 2023-08-08 18:12 | PC.ADMIT ---
Nursing admission note: 43 year old male DX: PTSD, Unspecified psychotic disorder. Referred for admission by CARE team. Signed conditional voluntary for admission. Patient self presented to [facility] due to depression and paranoia. Patient easily engaged. A+O x3. Calm and cooperative with admission process. Good eye contact, good attn to ADL. Cooperative with skin check completed with ECT ancillary staff. Reports mood is anxious. Gets nervous at times. Reports thoughts are racing, unable to focus and easily distracted. Relates this to inability to sleep for several days two weeks , in addition to withdrawal from Cannabis. Reports he was dehydrated and having flashbacks . Denies A/V hallucinations. Reports feeling antsy with leg twitches. Reports experiencing flashbacks. Endorses trauma history. Patient denies appetite disturbance. No acute medical problems. Reports allergy to Bupropion. Reports multiple stressors including recent house hopping , no income source, not seeing daughter for 2 years, divorce, and current unemployment. TOX screen positive for cannabis, smoking 1-2 gm daily to manage symptoms . Reports he has not been able to afford it lately. Reports he quit cigarettes 1 week ago, utilizing NRT. Refused this season flu shot. Patient oriented to unit, placed on unit safety checks. Does not want visitors at this time. See nursing assessment for further details/crisis eval for complete details.
[2023-08-09] MEDS: Nicotine 21 MG PATCH.TD24 TRANSDERMA (07:57)
[2023-08-09] MEDS: Ibuprofen 800 MG TABLET PO (07:58)
[2023-08-09 08:36] VITALS: BP 128/79; PULSE 76; RESP 17; TEMP 36.2; O2SAT 100
[2023-08-09 08:36] LABS: Estimated Average Glucose 100 mg/dL; Hemoglobin A1c % 5.1 % (<6.0)
[2023-08-09 08:49] LABS: Alanine Aminotransferase 14 U/L (0-40); Alkaline Phosphatase 48 U/L (39-117); Anion Gap 17 (12-20); Aspartate Amino Transferase 16 U/L (5-37); Bilirubin Total 0.8 mg/dL (0.0-1.0); Blood Urea Nitrogen 14 mg/dL (9-16); Calcium 10.2 mg/dL (8.4-10.2); Carbon Dioxide 23 mmol/L (22-29); Chloride 101 mmol/L (96-108); Cholesterol 225 mg/dL (<200); Creatinine Clr Calc Pharmacy 94.1; Estimated Glomerular Filt Rate > 60; Glucose Fasting 101 mg/dL (60-99); HDL Cholesterol 46 mg/dL (>40); LDL Cholesterol Calculated 153 mg/dL (<100); Sodium 136 mmol/L (135-145); Total Protein 8.2 g/dL (6.5-8.0); Triglycerides 131 mg/dL (<150)
[2023-08-09 09:04] LABS: Free T4 (Free Thyroxine) 0.99 ng/dL (0.71-1.85); Thyroid Stimulating Hormone 1.98 uIU/mL (0.32-4.0)
[2023-08-09 09:19] LABS: Folate 12.3 ng/mL (> or = 4.0); Vitamin B12 663 pg/mL (200-900)
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
[2023-08-09 20:00] VITALS: BP 123/73; PULSE 75; RESP 18; TEMP 36.5; O2SAT 98
[2023-08-10] MEDS: Nicotine 21 MG PATCH.TD24 TRANSDERMA (08:09)
[2023-08-10 08:19] VITALS: BP 154/91; PULSE 83; RESP 16; TEMP 36.2; O2SAT 100
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
== END 2023-08-10 12:25 | disposition home or self-care (01) | DRG 754 ==
LOC: HO.ED 08-07 09:47 → HO.PADLT16 08-08 12:34
PROVIDERS: Physician Assistant; Admitting Provider Psychiatry & Neurology Psychiatry; Emergency Provider Emergency Medicine Emergency Medical Services; PCP Internal Medicine; Visit Provider Psychiatry & Neurology Psychiatry
DX: F32.A Depression, unspecified (principal); Z20.822 Contact with and (suspected) exposure to COVID-19; Z87.891 Personal history of nicotine dependence
CPT/HCPCS: 36415; 80053; 80061; 80143; 80179; 80307; 81003; 82607; 82746; 83036; 84439; 84443; 85025; 87635; 99285; S9485

== ENCOUNTER → 2023-08-08 12:22 | Outpatient (BNV) | payer OTHER, SELFPAY | PROVIDERS: Admitting Provider Psychiatry & Neurology Psychiatry; Emergency Provider Emergency Medicine Emergency Medical Services; PCP Internal Medicine; Visit Provider Psychiatry & Neurology Psychiatry | DX: F33.3 Major depressive disorder, recurrent, severe with psychotic symptoms (principal) | CPT/HCPCS: 90792; 99238 ==

== ENCOUNTER 2023-08-30 10:25 | Outpatient (AMB) | payer OTHER, SELFPAY ==
--- NOTE | 2023-08-30 12:10 | AM.OFFWIN_ITS ---
Intake Vital Signs 08/30/23 12:12 Height 5 ft 6 in Weight 157 lb BMI 25.3 BP 120/78 Blood Pressure Location Rt brachial Position Sitting Pulse 66 Pulse Source Pulse Oximeter Temp 97.8 F Pulse Oximetry (%) 97 Oxygen Delivery Method Room Air Intake Visit Reasons: EP, right side of face pain (lobby) Intake Note: patient is here today fro rt side of face pain Patient Tobacco Use Status: Former Tobacco user Allergies bupropion [From Wellbutrin] Allergy (Intermediate, Verified 08/30/23 12:50) inadequate response Medication List - Last Reconciled 08/30/23 by Cresencio Coombs MD cephalexin 500 mg PO BID meloxicam 15 mg PO DAILY nicotine 21 mg transdermal DAILY 28 days Do you need a note to return to daycare/school/sports/work: No HPI EP, right side of face pain (lobby) HPI Details 42-year-old male presents to the office for a sick visit. Patient is reporting pain in the right side of his cheek with swelling. Symptoms started a few days ago. bad smell from the mouth. [facility] Medical History Hypovitaminosis D Unprotected sex Shortness of breath Anxiety and depression Erythema migrans (Lyme disease) Insect bite of thigh, right, infected Skin infection ADD (attention deficit disorder) Surgical History History of vasectomy Family History Father Diabetes Mother Cancer Smoker Family/Other FH: mental illness Social History Household Members: None Housing: Apartment Do you presently have visiting nurse or other home services: No Alcohol intake: never Patient Tobacco Use Status: Former Tobacco user Tobacco use type: Cigarette Cigarettes Per Day: 15 e-Cigarette/Vaping Use: Never Used Second Hand Smoke Exposure: No Substance Use Type: Marijuana and Caffiene service: No Current occupational status: employed Current occupational exposures/hazards: No Sexual orientation: Straight/Heterosexual Physical Exam Vital Signs: Last Vital Signs Temp 97.8 F 08/30/23 12:12 Pulse 66 08/30/23 12:12 BP 120/78 08/30/23 12:12 Pulse Ox 97 08/30/23 12:12 Oxygen Delivery Method Room Air 08/30/23 12:12 BMI result Body Mass Index 25.3 HEENT Other: Cheek: Right side: Tenderness over the malar prominence. Minimal erythema. Mucosal surface appears to be tender to touch. Assessment & Plan Assessment & Plan (1) Cellulitis, face: Code(s): L03.211 - Cellulitis of face Plan Antibiotic and anti-inflammatory called in. If symptoms do not improve to follow-up here. Medications: New cephalexin 500 mg PO BID 14 caps 0RF meloxicam 15 mg PO DAILY 14 tabs 0RF Coding Level of Care Code Est Pt Level 3 (66893) Diagnoses Cellulitis, face L03.211
[2023-08-30 12:12] VITALS: BP 120/78; PULSE 66; TEMP 36.6; O2SAT 97; BMI 25.3
== END 2023-08-30 12:59 | disposition home or self-care (01) ==
PROVIDERS: PCP Internal Medicine; Visit Provider Internal Medicine
DX: L03.211 Cellulitis of face (principal)
CPT/HCPCS: 99213

== ENCOUNTER 2023-09-02 11:55 | Emergency (ER) | payer SELFPAY | END 2023-09-02 13:24 | disposition left against medical advice (07) | LOC: HO.ED 13:23 | PROVIDERS: Emergency Provider Emergency Medicine; PCP Internal Medicine | DX: K04.7 Periapical abscess without sinus (principal) ==

== ENCOUNTER 2023-09-08 21:54 | Emergency (ER) | payer OTHER, SELFPAY ==
--- NOTE | ~2023-09-08 | XR_ITS ---
EXAMINATION: XR SINUSES CLINICAL INFORMATION: Right upper premolar abscess COMPARISON: None available. TECHNIQUE: 4 views of the sinuses were obtained. FINDINGS: Paranasal sinuses appear clear without air-fluid levels. No fractures are identified. No radiodense foreign bodies. XR/XR sinus min 3V IMPRESSION: Unremarkable examination.
[2023-09-08 22:17] VITALS: BP 110/64; BP 122/84; PULSE 83; PULSE 84; RESP 18; TEMP 36.6; O2SAT 97; BMI 26.0
[2023-09-08 22:23] VITALS: BP 110/64; PULSE 83; RESP 18; TEMP 36.1; O2SAT 97
--- NOTE | 2023-09-08 22:26 | ED_ITS ---
HPI - Skin/Abscess/Foreign Bdy General Chief complaint: Skin/Abscess/Foreign Body Stated complaint: 101/ MIGRAINE DUE TO ABSCESS IN JAW Time Seen by Provider: 09/08/23 22:25 Source: patient Mode of arrival: EMS Limitations: no limitations History of Present Illness HPI narrative: Patient with dental caries was given antibiotic 2weeks ago which he finished last week comes as having pain again in this right upper premolar and giving him headaches no fever no chills no significant swelling of the cheeks Related Data Previous Rx's Medication Instructions Recorded nicotine 21 mg/24 hr daily 21 mg transdermal DAILY 28 days 08/10/23 transdermal patch #28 ea cephalexin 500 mg capsule 500 mg PO BID #14 caps 08/30/23 meloxicam 15 mg tablet 15 mg PO DAILY #14 tabs 08/30/23 amoxicillin 875 mg-potassium 1 tab PO BID #20 tabs 09/08/23 clavulanate 125 mg tablet ibuprofen 600 mg tablet 600 mg PO Q6H PRN fever or pain 09/08/23 #30 tabs Allergies Allergy/AdvReac Type Severity Reaction Status Date / Time bupropion [From Wellbutrin] Allergy Intermediate inadequate Verified 08/30/23 12:50 response Review of Systems 2 Review of Systems: Yes all other systems are reviewed and are negative PMFSH Past Medical History Medical History Hypovitaminosis D Unprotected sex Shortness of breath Anxiety and depression Erythema migrans (Lyme disease) Insect bite of thigh, right, infected Skin infection ADD (attention deficit disorder) Surgical History History of vasectomy Family History Family History Father Diabetes Mother Cancer Smoker Family/Other FH: mental illness Social History Social History Household Members: None Housing: Apartment Do you presently have visiting nurse or other home services: No Alcohol intake: never Patient Tobacco Use Status: Former Tobacco user Tobacco use type: Cigarette Cigarettes Per Day: 15 Smoked in Last 30 Days: Yes e-Cigarette/Vaping Use: Never Used Second Hand Smoke Exposure: No Use of substances other than those prescribed or required for medical reasons: Yes Substance Use Type: Marijuana and Caffiene Advance Directives: No service: No Current occupational status: employed Current occupational exposures/hazards: No Sexual orientation: Straight/Heterosexual Physical Exam 2 Vital Signs: Vital Signs: Last Vital Signs Temp 97 F 09/08/23 22:23 Pulse 83 09/08/23 22:23 Resp 18 09/08/23 22:23 BP 110/64 09/08/23 22:23 Pulse Ox 97 09/08/23 22:23 O2 Del Method Room Air 09/08/23 22:23 BMI result Body Mass Index 26.0 Appearance: Alert. Oriented X3. No acute distress. ENT: Pharynx normal. Oral Mucosa moist, multiple carried to tenderness right upper premolar no gum swelling no abscess Neck: Normal inspection. Neck supple. CVS: Normal heart rate and rhythm. Pulses normal. Respiratory: No respiratory distress. Equal air entry bilateral, Abdomen: Soft and nontender. Bowel sounds are present, no mass palpable, no CVA tenderness Skin: Skin warm and dry. Normal skin color. Normal skin turgor. HEENT: Teeth image: 1. Tenderness diffuse dental caries no gum swelling multiple missing teeth Medications Administered Discontinued Medications Generic Name Dose Route Start Last Admin Trade Name Freq PRN Reason Stop Dose Admin Amoxicillin/Clavulanate Potassium 875 mg 09/08/23 22:36 09/08/23 23:35 Amoxicillin/Potassium Clav 875 Mg Tablet PO 09/08/23 22:37 875 mg ONCE ONE Administration Oxycodone HCl 10 mg 09/08/23 22:36 09/08/23 23:35 Oxycodone Hcl Immed Release 5 Mg Tablet PO 09/08/23 22:37 10 mg ONCE ONE Administration Medical Decision Making Medical Decision Making [facility] Narrative: Patient with diffuse dental caries no signs of any abscess or significant infection likely has pulpitis will do the x-ray of the sinuses X-ray of the sinuses negative for any fluid collection will discharge patient home on Augmentin and ibuprofen Differential Diagnosis Differential Diagnoses: The differential diagnosis associated with the presentation includes Dental caries/pulpitis /dental abscess Discharge Plan Discharge Clinical Impression: Tooth ache Patient Disposition: Home, Self-Care Instructions: Toothache (ED) Additional Instructions: Take antibiotic as prescribed and pain medication follow-up with dentist Prescriptions: New ibuprofen 600 mg tablet 600 mg PO Q6H PRN (Reason: fever or pain) Qty: 30 0RF amoxicillin-pot clavulanate 875-125 mg tablet 1 tab PO BID Qty: 20 0RF No Action nicotine 21 mg/24 hr Patch 24 Hour 21 mg transdermal DAILY 28 Days Qty: 28 0RF cephalexin 500 mg capsule 500 mg PO BID Qty: 14 0RF meloxicam 15 mg tablet 15 mg PO DAILY Qty: 14 0RF
[2023-09-08] MEDS: Amoxicillin/Potassium Clav 875 MG TABLET PO (23:35)
[2023-09-08] MEDS: oxyCODONE HCl Immed Release 5 MG TABLET 10 MG PO (23:35)
[2023-09-08 23:53] VITALS: BP 112/65; PULSE 64; RESP 12; O2SAT 100
== END 2023-09-08 23:57 | disposition home or self-care (01) ==
PROVIDERS: Emergency Provider Internal Medicine; PCP Internal Medicine
DX: K08.89 Other specified disorders of teeth and supporting structures (principal); K02.9 Dental caries, unspecified; F12.90 Cannabis use, unspecified, uncomplicated; Z87.891 Personal history of nicotine dependence
CPT/HCPCS: 70220; 99283; 99284

== ENCOUNTER 2025-08-23 14:52 | Emergency (ER) | payer SELFPAY ==
[2025-08-23 14:58] VITALS: BP 115/80; PULSE 79; RESP 20; TEMP 35.7; O2SAT 100; BMI 23.1
[2025-08-23 15:17] VITALS: BP 115/80; PULSE 79; RESP 20; TEMP 35.7; O2SAT 100
--- NOTE | 2025-08-23 15:27 | ED_ITS ---
HPI - General Adult General Chief complaint: Skin/Abscess/Foreign Body Stated complaint: Tick bite, infected Time Seen by Provider: 08/23/25 15:03 Source: patient, RN notes reviewed and old records reviewed Mode of arrival: ambulatory Limitations: no limitations History of Present Illness ED Provider: Rao HPI narrative: Patient is a 45-year-old male presenting to the emergency department after removing a tick from his left thigh 24 hours ago. States that he believes the tick was embedded for at least 24 hours prior to removal. Reports localized erythema to the area of the tick bite. complaint: Tick bite Onset (ago): day(s) Related Data Previous Rx's ?Medication ?Instructions ?Recorded cephalexin 500 mg capsule 500 mg PO BID #14 caps 08/30 meloxicam 15 mg tablet 15 mg PO DAILY #14 tabs 08/15 05/07 ibuprofen 600 mg tablet 600 mg PO Q6H PRN fever or p ain 09/08/23 #30 tabs amoxicillin 875 mg-potassium 1 tab PO BID #20 tabs clavulanate 125 mg tablet nicotine 14 mg/24 hr daily 1 patch transdermal DAILY 2 8 days 04/26/24 transdermal patch #28 ea Held on 05/25/25. Instructions: Dose Change nicotine 21 mg/24 hr daily 1 patch transdermal DAILY 2 8 days 08/19/25 transdermal patch #28 ea Allergies Allergy/AdvReac Type Severity Reaction Status Date / Time bupropion (From Wellbutrin) Allergy Intermediate inadequate Verified 08/23/25 15:02 response Review of Systems 2 Review of Systems: As per HPI Yes all other systems are reviewed and are negative Constitutional: Constitutional: Reports as per HPI PMFSH Past Medical History Medical History Hypovitaminosis D Unprotected sex Shortness of breath Anxiety and depression Erythema migrans (Lyme disease) Insect bite of thigh, right, infected Skin infection ADD (attention deficit disorder) Surgical History History of vasectomy Family History Family History Father Diabetes Mother Cancer Smoker Family/Other FH: mental illness Social History Social History Household Members: None Housing: Apartment Do you presently have visiting nurse or other home services: No Alcohol intake: never Patient Tobacco Use Status: Former Tobacco user Tobacco use type: Cigarette Cigarettes Per Day: 15 e-Cigarette/Vaping Use: Never Used Second Hand Smoke Exposure: No Substance Use Type: Marijuana and Caffiene Advance Directives: No Advance Directives Information Provided: Yes Do you have a plan to hurt others: No Plan service: No Current occupational status: employed Current occupational exposures/hazards: No Sexual orientation: Straight/Heterosexual Physical Exam ED Vital Signs: Vital Signs - 24 hr 08/23/25 14:58 08/23/25 15:17 Temperature 96.2 F L 96.2 F L Pulse Rate 79 79 Respiratory Rate 20 20 Blood Pressure 115/80 115/80 Pulse Oximetry 100 100 Oxygen Delivery Method Room Air Room Air BMI result Body Mass Index 23.1 Vital signs have been reviewed and appear to be correct. Blood pressure normal. Heart rate normal. Respiratory rate normal. Temperature normal. Oxygen saturation normal. Const General: cooperative, healthy appearing and no acute distress Orientation/consciousness: oriented to person, oriented to place, oriented to time and patient oriented x3 Limitations: no limitations HENMT Head: Yes normocephalic and Yes atraumatic Ears: external ears normal General nose exam: Normal external nose present Face and sinus: Yes face symmetric Mouth: oropharynx normal and moist mucous membranes Throat: Yes uvula midline Eyes Pupils: Equal, round and reactive pupils present Neck Neck: Yes normal visual inspection and Yes supple Resp Effort & Inspection: normal respiratory effort and able to speak in complete sentences Auscultation: clear to auscultation bilaterally Cardio Rate: regular rate Rhythm: regular rhythm Heart sounds: S1 normal heart sound present and S2 normal heart sound present GI Palpation (GI): Tenderness to palpation present (GI) Skin General skin exam: elasticity normal and turgor normal Full body images: 2 1. 1cm diameter area of erythema to left lateral thigh with central opening, no fluctuance or warmth Neuro General: oriented to person, oriented to place, oriented to time, patient oriented x3, moves all extremities, no focal motor deficits and CN's II-XI intact bilaterally Cranial nerves: Yes Equal, round and reactive pupils present Cognition (Neuro): normal cognition Extrem General: Yes full ROM, Yes no pedal edema and Yes no calf tenderness Psych Mental Status: mental status grossly normal Affect: normal affect Thought process: Normal thought process present Medications Administered Discontinued Medications Generic Name Dose Route Start Last Admin Trade Name Esvin PRN Reason Stop Dose Admin Doxycycline Monohydrate 200 mg 08/23/25 15:03 08/23/25 15:08 Doxycycline Monohydrate 100 Mg Capsule PO 08/23/25 15:04 200 mg ONCE ONE Administration Medical Decision Making Medical Decision Making [facility] Narrative: Patient is a 45-year-old male presenting to the emergency department after removing a tick from his left thigh 24 hours ago. On exam patient is awake, A+Ox3, VS WNL, afebrile, normal neurological exam without focal deficits, physical exam findings as above. Given reported symptoms and physical exam findings, initial differential includes but is not limited to tick bite, cellulitis, exposure to tick borne illnesses. No evidence of cellulitis or abscess at this time. Will treat with one-time prophylactic dose of doxycycline 200mg. Discussed with patient that he should follow up with PCP if he develops fevers, body aches or other symptoms in 4-6 weeks. Return precautions discussed. Patient verbalized understanding of and agreement with plan. Differential Diagnosis Differential Diagnoses: The differential diagnosis associated with the presentation includes as per [facility] Admission/Observation Consideration of admission/observation: Escalation of care including admission/observation considered Patient would have been admitted to the hospital and transferred to appropriate facility had their clinical presentation warranted hospital admission. External Record Review External record reviewed: Inpatient record, Office record and Outpatient record Prescription Management I considered prescription management with: Antibiotic Discharge Plan Discharge Clinical Impression: Tick bite of left thigh Patient Disposition: Home, Self-Care Instructions: Tick Bite (ED) Additional Instructions: You were evaluated in the emergency department today for a tick bite. You were treated with a 1 time dose of an antibiotic to prevent the transmission of infection. 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 Return to the emergency department with any new or concerning symptoms. Prescriptions: No Action amoxicillin-pot clavulanate 875-125 mg tablet 1 tab PO BID Qty: 20 0RF nicotine 14 mg/24 hr patch 24 hour 1 patch transdermal DAILY 28 Days Qty: 28 0RF nicotine 21 mg/24 hr patch 24 hour 1 patch transdermal DAILY 28 Days Qty: 28 0RF ibuprofen 600 mg tablet 600 mg PO Q6H PRN (Reason: fever or pain) Qty: 30 0RF cephalexin 500 mg capsule 500 mg PO BID Qty: 14 0RF meloxicam 15 mg tablet 15 mg PO DAILY Qty: 14 0RF Interventions: ED Discharge Assessment Last Done: 08/23/25 15:17 Print Language: Pashto
== END 2025-08-23 15:17 | disposition home or self-care (01) ==
PROVIDERS: Emergency Provider Emergency Medicine; PCP Internal Medicine
DX: S70.362A Insect bite (nonvenomous), left thigh, initial encounter (principal); W57.XXXA Bitten or stung by nonvenomous insect and other nonvenomous arthropods, initial encounter; Y93.9 Activity, unspecified; Y92.9 Unspecified place or not applicable; Y99.9 Unspecified external cause status
CPT/HCPCS: 99282; 99283